=== PATIENT | female | born 2000 | race Caucasian/White ===

== ENCOUNTER 2023-12-26 07:30 | Inpatient (IN) ==
--- NOTE | 2023-12-11 11:40 | Anesthesiology Consultation ---
Date of Service December 11, 2023 Assessment & Plan (1) Encounter for pre-operative examination: - spina bifida occulta history as below. Case discussed in detail with Dr. Woodard who advised patient should be acceptable candidate for neuraxial anesthesia given below imaging and examination by orthopedics. He advised nothing further is needed prior to , final determination to anesthesiologist evaluation at presentation. FYI sent to surgeon's office. - orthopedics office visit 01/02/2021 [facility]: "...complaints/concerns of intermittent lower back pain with no radiculopathy symptoms that has been ongoing for the past two years...Onset, progress and duration: since 2019...Spine surgery - Surgeon and date: no...neurologically intact. Has no radiculopathy symptoms or symptoms of neurogenic claudication...Activity modification. Physical therapy exercises for gentle ROM, muscle relaxation and strengthening. Brace for spinal stabilization and pain relief. Pain medications as per the primary care. Adverse effects and appropriate precautions were discu ssed...patient elected to f/u prn..."' - PCP office visit 11/25/2020 [facility]: "...Back in 2019 MRI of the lumbar spine was ordered secondary to history of spina bifida occulta and chronic lumbosacral back pain. MRI was normal, but she continues with chronic lumbosacral back pain ...has done physical therapy. She would like to find low up with a surgeon for possible injections...SPINE SURGERY REFERRAL OP..." - lumbar spine x-ray 01/02/2021 There are 5 lumbar vertebral bodies. Vertebral body heights are maintained. There is no fracture. There is normal lumbar lordosis, without significant change on flexion/extension views. Disc space heights are maintained. - lumbar spine MRI 07/20/2019 For the purposes of this report there are 5 lumbar type vertebral bodies and 12 rib bearing thoracic vertebral bodies. This was determined via test borer imaging. There is no evidence of fracture or subluxation. No suspicious bone marrow signal abnormalities are identified. The lumbar vertebral body alignment, heights, and signal intensities are within normal limits. The conus is of normal caliber and signal intensity and terminates at L1. The visualized cord is normal in morphology and signal. No intraspinal or paraspinal mass is identified. There is no evidence of tethered cord. There is no significant disc bulge, and no high-grade spinal or foraminal stenosis identified. No facet arthropathy. No abnormal enhancement is appreciated on post-contrast sequences. Paraspinal soft tissues are within normal limits. The partially imaged abdomen and pelvis are unremarkable. IMPRESSION 1. Normal lumbar spine. - Per boiler testing technician on 12/11/23: No known infectious disease contacts, current infectious disease symptoms in past 10 days or COVID positive test result in the past 30 days. Chart Review Chart Review: order entry initiated History Surgery Operation Date: 12/27/23 10:25 Proposed Procedures p Section (Delivery of Baby Through Abdominal Incision) - Mary Martinez, Height/Weight Height: 5 ft 8 in Weight: 85.275 kg Allergies Allergy/AdvReac Type Severity Reaction Status Date / Time No Known Allergies Allergy Verified 12/11/23 10:35 Medications Home Medications Medication Instructions Recorded Confirmed Last Taken enoxaparin 80 mg/0.8 mL 80 mg subcut QAM 12/11/23 12/11/23 Unknown subcutaneous syringe folic acid 1 mg tablet 5 mg PO QAM 12/11/23 12/11/23 Unknown vsndgjkd-[id number]-Rb-FA 1 mg 1 tab PO QAM 12/11/23 12/11/23 Unknown tablet Past Medical History Medical History (Updated 12/11/23 @ 11:38 by Leta Jiménez PA-C) Anemia affecting was to have IV iron infusion but had syncopal event due to IV, now takes po iron History of chicken pox History of COVID-19 x 6-8, not hospitalized MTHFR gene mutation lovenox prophylactic, will start heparin bid 12/13/23 Spina bifida occulta Past Family History Family History Father MTHFR mutation Grandmother (Paternal) MTHFR mutation Aunt MTHFR mutation Denies family history of Ovarian cancer Breast cancer Colorectal cancer Past Surgical History Surgical History S/P nasal surgery S/P wisdom tooth extraction Social History Smoking Status: Former smoker Do You Dip or Chew Tobacco: No Smoking End Date: quit vaping 2022 Hx Substance Use: No substance use type: does not use
--- NOTE | 2023-12-26 13:36 | History & Physical Report ---
Date of Service December 26, 2023 Assessment & Plan (1) Breech presentation: Plan: Plan for primary section d/t breech presentation. Reviewed consent in office. History of Present Illness Chief Complaint: breech presentation Primary Care Provider: LISANDRO PCP 23yo with breech presentation. EDC 01/02/24 LGSIL pap 05/2023 Repeat pap/HPV in [address] Martinez BREECH PRESENTATION C/S SCHEDULED FOR 12/26/[address] CALLE C/S RESCHEDULED TO 12/27/[address] MARTINEZ FMHX Blood Clots *HEME Consult (06/13/23 @ [facility] [place]) -Tested negative for factor 5 and positive for MTHFR mutation *Started on 80mg of Lovenox daily for prophylaxis and states to continue rest of *Need to see if will transition to heparin at 36wks---[facility] and states they will switch her to heparin at 36wks GBS Positive *Treat in Labor Allergies Allergy/AdvReac Type Severity Reaction Status Date / Time No Known Allergies Allergy Verified 12/26/23 11:08 Home Medications Medication Instructions Recorded Confirmed Type folic acid 1 mg tablet 5 mg PO QAM 12/11/23 12/26/23 History trcelsys-iki-Lt-FA 1 mg 1 tab PO QAM 12/11/23 12/26/23 History tablet heparin lock flush (porcine) subcut 12/24/23 12/26/23 History [heparin (porcine)] Patient History Medical History (Updated 12/26/23 @ 13:37 by Mary Martinez, DO) Spina bifida occulta Anemia affecting was to have IV iron infusion but had syncopal event due to IV, now takes po iron History of COVID-19 x 6-8, not hospitalized MTHFR gene mutation lovenox prophylactic, will start heparin bid 12/13/23 History of chicken pox Surgical History S/P wisdom tooth extraction S/P nasal surgery Family History Father MTHFR mutation Grandmother (Paternal) MTHFR mutation Aunt MTHFR mutation Denies family history of Ovarian cancer Breast cancer Colorectal cancer Social History (Updated 05/20/23 @ 08:56 by Francheska Wren) Smoking Status: Former smoker Tobacco Type: E-cigarettes / Vaping Second Hand Exposure: No; Do You Dip or Chew Tobacco: No; Hx Substance Use: No Preferred Language: Dutch Communication Ability: Effective Ui Developer Required: No Beliefs That Will Affect Care: None marital status: Single marital status details: rossana Tran [place](23) [phone] Current Living Situation: Significant Other Current Living Situation Comment: lives alone, 2 dogs current occupational status: employed current occupation: [employer] [place] Feels Safe at Home: Yes Assistive Devices: Glasses Review of Systems All systems reviewed & are unremarkable except as noted in HPI & below Physical Exam Constitutional: WD/WN, vitals as above Respiratory: normal respiratory effort, lungs clear to auscultation no respiratory distress Cardiovascular: Rate/Rhythm: regular rate and regular rhythm Gastrointestinal (Abdomen): Inspection/Auscultation: abdomen normal to inspection Percussion/Palpation: abdomen soft; abdomen nontender Gravid. No s/s chorio or abruption. Skin: no rashes, warm and dry Psychiatric: A+Ox3, euthymic affect Coding Level of Care Code None Diagnoses Breech presentation O32.1XX0
[2023-12-27] MEDS: LACTATED RINGER'S 1,000 ML IV SCH (07:20)
--- NOTE | 2023-12-27 07:34 | History & Physical Bridge Note ---
Date of Service December 27, 2023 History & Physical Bridge Note I have examined the patient, reviewed the History & Physical and in the interval since the performance of the History & Physical I have noted the following changes of clinical significance: no changes noted
[2023-12-27] MEDS ORDERED: MoRPHine SULFATE PF 1 MG/ML 10 ML AMP/VIAL ONE (07:44)
[2023-12-27] MEDS ORDERED: fentaNYL citrate PF 100 MCG/2 ML VIAL ONE (07:44)
[2023-12-27] MEDS ORDERED: PHENYLEPHRINE HCL 25 MG/250 ML NSS IV ONE (07:45)
[2023-12-27] MEDS ORDERED: OXYTOCIN 10 UNITS/ML VIAL ONE ×3 (07:45)
[2023-12-27] MEDS ORDERED: Nursing to Pharmacy Communication SCH (07:45)
[2023-12-27 09:01] LABS: Basophils # (auto) 0.03 K/uL (0.00-0.20); Basophils % (auto) 0.4 %; Eosinophils # (auto) 0.07 K/uL (0.00-0.50); Hematocrit (blood only) 32.4 % (37.0-47.0); Immature Granulocytes # (auto) 0.05 K/uL (0.01-0.20); Immature Granulocytes % (auto) 0.7 %; Lymphocytes # (auto) 1.85 K/uL (1.20-3.40); Lymphocytes % (auto) 25.6 %; Mean Corpuscular Hemoglobin 30.1 pg (25.0-34.0); Mean Corpuscular Volume 88.8 fL (80.0-100.0); Mean Platelet Volume 10.8 fL (9.4-12.4); Monocytes % (auto) 8.3 %; Neutrophils # (auto) 4.63 K/uL (1.40-6.50); Platelet Count 235 K/uL (130-400); RDW Coefficient of Variation 12.9 % (11.5-14.5); RDW Standard Deviation 41.5 fL (36.4-46.3); Red Blood Count 3.65 M/uL (4.20-5.40); White Blood Count 7.23 K/ul (4.8-10.8)
[2023-12-27] MEDS: ceFAZolin 2000MG 2,000 MG/15 ML SYR IV SCH (10:47)
[2023-12-27] MEDS: CITRIC ACID/SODIUM CITRATE 15 ML UDC PO SCH (10:47)
[2023-12-27] MEDS ORDERED: DROPERIDOL 5 MG/2 ML VIAL IV PRN (11:10)
[2023-12-27] MEDS ORDERED: MoRPHine SULFATE PF 1 MG/ML 10 ML AMP/VIAL INT SPINAL ONE (11:10)
[2023-12-27] MEDS ORDERED: NALOXONE HCL 1 MG in SODIUM CHLORIDE 0.9% 1,000 ML IV PRN (11:10)
[2023-12-27] MEDS ORDERED: ONDANSETRON INJ 2 MG/ML 2 ML VIAL IV PRN (11:10)
[2023-12-27] MEDS ORDERED: diphenhydrAMINE 50 MG/ML VIAL IV PRN ×2 (11:10)
[2023-12-27] MEDS ORDERED: NALBUPHINE HCL 5 MG in SYRINGE 0 ML IV PRN (11:10)
[2023-12-27] MEDS ORDERED: NALOXONE HCL 0.4 MG/1 ML VIAL/CARP IV PRN (11:10)
[2023-12-27] MEDS ORDERED: ePHEDrine sulfate 50 MG/ML AMP IV PRN (11:10)
[2023-12-27] MEDS ORDERED: LACTATED RINGER'S 500 ML IV PRN (11:10)
[2023-12-27] MEDS ORDERED: NALOXONE HCL 0.08 MG in SYRINGE 1.8 ML IV PRN (11:10)
[2023-12-27] MEDS ORDERED: NO NARCOTICS OR SEDATIVES SCH (11:15)
[2023-12-27] MEDS ORDERED: DC INTRASPINAL MORPHINE SCH (11:15)
[2023-12-27] MEDS ORDERED: SODIUM CHLORIDE 0.9% 1,000 ML IV SCH (11:15)
[2023-12-27] MEDS ORDERED: ONDANSETRON INJ 2 MG/ML 2 ML VIAL ONE (11:27)
[2023-12-27 11:46] LABS: Base Excess Cord Venous Blood -8.3 mEq/L (-7.7-1.9); Cord Venous Blood HCO3 22 mmol/L (18.4-26.8); Cord Venous Blood PCO2 68 mmHg (30.4-57.2); Cord Venous Blood PO2 < 20 mmHg (14.1-43.3); Cord Venous Blood pH 7.12 (7.20-7.44); O2 Saturation Cord Venous Bld < 60.0 % (<68)
[2023-12-27 11:48] LABS: Base Excess Cord Arterial Bld -10.5 mEq/L (-9-1.8); CO2 Cord Arterial Blood 77 mmHg (39.1-73.5); HCO3 Cord Arterial Blood 21 mmol/L (19.7-28.5); Oxygen Sat Cord Arterial Blood < 60.0 % (<60); PO2 Cord Arterial Blood < 20 mmHg (4.1-31.7); pH Cord Arterial Blood 7.05 (7.1-7.38)
[2023-12-27] MEDS ORDERED: HYDROmorphone INJ 0.5 MG/0.5 ML SYR IV PRN (12:06)
--- NOTE | 2023-12-27 12:11 | Operative Report ---
PG Post Operative Report Pre & Post Diagnosis Operation Date: 12/27/23 09:10 Pre-Op Diagnosis: 1. Breech presentation 2. Term Post-Op Diagnosis: Same I identified the patient and participated in the time-out.: Yes Procedure Operation Date: 12/27/23 09:10 Actual Procedures Primary Low Transverse Section in LD; Primary Lower Uterine Transverse Section for the of a live girl at 1122(Bilateral) - Mary Martinez DO Surgeon Mary Martinez DO Oil Inspector Pauly Ames RN, Liz Davison RN Estimated Blood Loss 264 (QBL ) Findings Consistent with Post-Op Diagnosis Viable female , Apgars 8/9. Weight pending, please see nursery records. Specimens placenta, cord blood, cord gas Drains velez clear yellow Anesthesia Type Spinal Complications none Disposition Accompanied Patient To Recovery: Yes Disposition: L&D Indications 23yo @ 39 1/, breech presentation. Description of Procedure The patient was seen in her labor and delivery room, risks benefits and alternatives to surgery were reviewed. Informed consent obtained. Questions were answered. She was taken to the operating room, spinal anesthesia was administered. She was then prepared and draped in the usual sterile fashion in the supine position with a leftward tilt. Timeout was confirmed. A Pfannenstiel skin incision was made with a scalpel, and carried through to the underlying layer of fascia. Fascia was nicked at midline, and this incision was extended bilaterally. The superior aspect of the fascial incision was grasped with Chalo clamps x2, elevated off the underlying rectus abdominis muscles, and dissected sharply and bluntly. In similar fashion, the inferior aspect of the fascial incision was dissected. The rectus abdominis muscles were , and the peritoneum was entered bluntly digitally. This was extended bilaterally. The bladder flap was taken down carefully using Metzenbaum scissors. Using a new scalpel, a low transverse uterine incision was created. Clear amniotic fluid noted. The infant was delivered from a breech presentation. One foot delivered, followed by medial sweep of other leg for delivery. Body delivered, followed by medial sweeps of arms. Head delivered easily. The cord was doubly clamped and cut, and the was handed off to the waiting wire brush maker. A segment was retained for cord gases. Cord blood was obtained. The placenta was delivered spontaneously intact. The uterus was exteriorized, and cleared of all clots and debris. The hysterotomy incision was reapproximated using 0 Vicryl in a running locked stitch. A second layer of the same suture was used to imbricate the incision. Posterior uterus was evaluated and normal. The uterus was returned to the abdomen, and gutters were cleared of clots and debris. Excellent hemostasis was observed. There was previously a small amount of bleeding in left abdominal muscle wall - rectus abdominus. This was hemostatic after the delivery of baby, however Levy powder was applied to this area as a preventative. The fascial incision was reapproximated using 0 Vicryl in a running stitch. The subcutaneous tissue was irrigated, and reapproximated using 2-0 plain gut in a running stitch. The skin was reapproximated using 4-0 Vicryl in a running subcuticular stitch. Steri-Strips and a bandage were applied. The patient tolerated the procedure well, and will be taken to the recovery area in stable and good condition. I attest to the content of the Intraoperative Record and any orders documented therein. Any exceptions are noted below. OB Procedure Charges 28456
[2023-12-27] MEDS: GELATIN SPONGE SZ 100 ONE ×2 (12:38)
[2023-12-27] MEDS ORDERED: ARISTA ABSORBABLE HEMOSTAT 3GM TOP ONE (12:39)
--- NOTE | 2023-12-27 12:40 | Anesthesiology Progress Note ---
Date of Service December 27, 2023 Anesthesia Post Procedure Vital Signs Vital Signs: Temp Pulse Pulse Resp BP Pulse Ox O2 Del Method 12/27/23 12:38 56 L 115/53 L 12/27/23 12:35 17 12/27/23 12:34 60 99 12/27/23 12:29 62 100 12/27/23 12:27 16 12/27/23 12:24 65 99 12/27/23 12:22 68 92 12/27/23 12:20 71 118/70 12/27/23 12:19 71 100 12/27/23 12:15 36.6 C 64 16 Room Air 12/27/23 12:14 65 100 12/27/23 12:09 86 L 12/27/23 12:09 74 12/27/23 12:09 75 88 L 12/27/23 12:07 73 98/51 L 12/27/23 12:04 74 100 12/27/23 07:19 75 117/70 12/27/23 07:19 37.1 C 75 16 117/70 Pain Intensity Lower Abdomen: Pain Intensity: 0 Transfer of Care Handoff Completed per policy Notes Mental Status: alert / awake / arousable Patient Amnestic to Procedure: Yes Nausea / Vomiting: adequately controlled Pain: adequately controlled Airway Patency, RR, SpO2: stable & adequate BP & HR: stable & adequate Hydration State: stable & adequate Neuraxial Anesthesia: was administered and sensory block is resolving Anesthetic Complications: no major complications apparent and Pt Satisfied with anesthetic care
[2023-12-27] MEDS ORDERED: SENNA 8.6 MG TAB PO PRN (13:47)
[2023-12-27] MEDS ORDERED: MAGNESIUM HYDROXIDE SUSP 30 ML UDC PO PRN (13:47)
[2023-12-27] MEDS ORDERED: BENZOCAINE 20% SPRY 85 APPLN/85 GM CAN EXT PRN (13:47)
[2023-12-27] MEDS ORDERED: diphenhydrAMINE Capsule 25 MG CAP PO PRN (13:47)
[2023-12-27] MEDS ORDERED: LACTATED RINGER'S 1,000 ML IV SCH (13:47)
[2023-12-27] MEDS ORDERED: DIPHTHER/TETAN/PERTUS Vaccine (Tdap, Adol/Adult) 0.5mL IM ONE (13:47)
[2023-12-27] MEDS ORDERED: HYDROCORTISONE ACETATE 25 MG SUPP PR PRN (13:47)
[2023-12-27] MEDS: OXYTOCIN 20 UNITS/LR 1,002 ML IV SCH (13:53)
[2023-12-27] MEDS: KETOROLAC 30 MG/ML VIAL IV PRN (14:17)
[2023-12-27] MEDS: DOCUSATE SODIUM 100 MG CAP PO SCH (21:40)
[2023-12-27] MEDS: SIMETHICONE 80 MG CHEW PO SCH (21:40)
[2023-12-28] MEDS ORDERED: diphenhydrAMINE Capsule 25 MG CAP PO PRN (05:10)
[2023-12-28] MEDS ORDERED: oxyCODONE/ACETAMINOPHEN 5mg/325mg TAB PO PRN (05:10)
[2023-12-28] MEDS ORDERED: PROMETHAZINE HCL 25 MG in SODIUM CHLORIDE 0.9% 50 ML IV PRN (05:10)
[2023-12-28] MEDS ORDERED: ONDANSETRON INJ 2 MG/ML 2 ML VIAL IV PRN (05:10)
[2023-12-28] MEDS ORDERED: diphenhydrAMINE 50 MG/ML VIAL IV PRN (05:10)
[2023-12-28] MEDS ORDERED: KETOROLAC 30 MG/ML VIAL IV PRN (05:10)
--- NOTE | 2023-12-28 06:23 | Obstetrical Progress Note ---
Date of Service <Mei Chong Radha - Last Filed: 12/28/23 06:24> December 28, 2023 Assessment & Plan <Mei Arlette Garcia DO - Last Filed: 12/28/23 06:24> (1) care following delivery: (2) Group B streptococcal infection during : (3) Breech presentation: Plan Feels well today. Eating well, voiding well. Pain well controlled with IV pain meds overnight, to transition to oral pain meds today. Routine care; OOB, ambulation, diet progression as tolerated. Anticipate discharge 48-72 hrs after c section delivery, tomorrow or Saturday but likely Saturday for first time mom who is /pumping. After discharge will have 6 week follow-up with Dr. Matrinez. <Mary Martinez, - Last Filed: 12/28/23 07:32> (1) care following delivery: (2) Group B streptococcal infection during : (3) Breech presentation: Subjective <Mei Garcia DO - Last Filed: 12/28/23 06:24> Pt is a 23 y/o female who is POD#1 following delivery for breech on 12/26. Today, pt states she is feeling well. She states the catheter was removed and she was just able to void on her own. She states she is overall feeling well, has ambulated some since the delivery and is tolerating oral intake without issue. She is going to try to learn how to pump and breastfeed today. Cramps are mild and lochia is minimal. No questions or complaints at this point in time. Constitutional: no fever, no chills or no sweats Respiratory: no dyspnea Cardiovascular: no chest pain or no palpitations Breast: no breast pain Genitourinary (female): no dysuria Neurologic: no headache(s) no changes in vision, no headaches Physical Exam <Mei Garcia DO - Last Filed: 12/28/23 06:24> General: Alert, oriented. No acute distress. Cardiac: Regular rate and rhythm, no murmurs, rubs, or gallops. Respiratory: Clear to auscultation bilaterally, no wheezes/rales/rhonchi. No increased work of breathing. Symmetrical chest rise. No respiratory distress. Abdomen: Soft, nontender, nondistended. Bowel sounds present. Uterus: Uterine fundus firm, palpable below the umbilicus. Surgical scar clean and healing well, steristrips in place. Lower extremities: No deep calf pain. Results & Data <Mei Garcia DO - Last Filed: 12/28/23 06:24> Vital Signs (Past 12 Hours) Vital Signs Temp Pulse Resp BP Pulse Ox O2 Del Method 12/28/23 05:15 36.8 C 76 20 108/70 99 Room Air 12/28/23 05:00 20 99 12/28/23 04:15 18 98 12/28/23 03:12 18 96 12/28/23 02:15 16 97 12/28/23 01:15 18 98 12/28/23 00:00 16 99 12/28/23 00:00 37.1 C 85 16 105/62 99 Room Air 12/27/23 23:00 18 97 12/27/23 22:11 18 97 12/27/23 21:15 20 98 12/27/23 20:30 18 96 12/27/23 20:30 36.9 C 82 18 113/70 96 Room Air 12/27/23 19:15 18 98 Supervising Physician <Mary Martinez DO - Last Filed: 12/28/23 07:32> Co-Signing Physician Notes Resident Physician Supervision Note: I was present with Dr. Garcia during the history and exam. I discussed the case with the resident and agree with the findings and plan as documented in the note. Any exceptions or clarifications are listed here: POD#1 doing well, no concerns. Routine postop care. Plan to restart her lovenox dosing at 11a (24h after CS), Rx sent to [facility]. She is aware of rec to take for the next 6w. Documented By: Mary Martinez DO Resident Activity Tracking <DO Arie Alcala Last Filed: 12/28/23 06:24> Resident Involvement: Resident Care Provided Care Provided: OB Delivery
[2023-12-28 07:24] LABS: Basophils # (auto) 0.04 K/uL (0.00-0.20); Basophils % (auto) 0.4 %; Eosinophils # (auto) 0.05 K/uL (0.00-0.50); Eosinophils % (auto) 0.5 %; Hematocrit (blood only) 29.6 % (37.0-47.0); Hemoglobin 9.9 g/dl (12.0-16.0); Immature Granulocytes # (auto) 0.04 K/uL (0.01-0.20); Immature Granulocytes % (auto) 0.4 %; Lymphocytes # (auto) 1.76 K/uL (1.20-3.40); Lymphocytes % (auto) 16.8 %; Mean Corpuscular Hgb Conc 33.4 g/dL (32.0-36.0); Mean Corpuscular Volume 89.7 fL (80.0-100.0); Mean Platelet Volume 10.7 fL (9.4-12.4); Monocytes # (auto) 0.77 K/uL (0.11-0.59); Monocytes % (auto) 7.3 %; Neutrophils # (auto) 7.83 K/uL (1.40-6.50); Neutrophils % (auto) 74.6 %; Platelet Count 177 K/uL (130-400); RDW Coefficient of Variation 13.1 % (11.5-14.5); RDW Standard Deviation 42.3 fL (36.4-46.3); White Blood Count 10.49 K/ul (4.8-10.8)
[2023-12-28 08:02] LABS: Creatinine Clr Calc Pharmacy 139.5 ml/min; Est GFR (African American) 135.9 ml/min; Est GFR (Non-African American) 117.2 ml/min
[2023-12-28] MEDS: FERROUS SULFATE 325 MG TAB PO SCH (08:38)
[2023-12-28] MEDS: PRENATAL VITAMIN 1 TAB PO SCH (08:38)
[2023-12-28] MEDS ORDERED: ENOXAPARIN 80 MG/0.8 ML SYR SQ SCH (09:00)
[2023-12-28] MEDS: IBUPROFEN 600 MG TAB PO PRN (11:26)
[2023-12-28] MEDS: ENOXAPARIN 80 MG/0.8 ML SYR SQ SCH (11:26)
[2023-12-28] MEDS: bisacodyL 5 MG TABEC PO SCH (20:25)
[2023-12-29 06:30] LABS: Hematocrit (blood only) 30.6 % (37.0-47.0); Hemoglobin 10.3 g/dl (12.0-16.0)
--- NOTE | 2023-12-29 07:37 | Obstetrical Progress Note ---
Date of Service December 29, 2023 Assessment & Plan (1) care following delivery: Postoperative from section patient meets discharge criteria as she is ambulating well tolerating an oral diet has minimal bleeding and no extremity pain. Discharge instructions were reviewed and prescriptions were sent to her pharmacy of choice patient advised to call with any concerns and follow-up in the office discussed incision cdi Subjective Ambulation: ambulating normally Voiding: no voiding problems Passing Gas:: Yes Diet Tolerance:: regular diet Lochia:: Small Physical Exam Constitutional WD/WN, vitals as above well developed and well nourished Respiratory normal respiratory effort, lungs clear to auscultation normal respiratory effort Cardiovascular RRR, no murmur, no edema Gastrointestinal (Abdomen) normal bowel sounds, soft, nontender, no hepatosplenomegaly Results & Data Vital Signs (Past 12 Hours) Vital Signs Temp Pulse Resp BP Pulse Ox O2 Del Method 12/29/23 07:19 98.4 F 84 16 115/73 12/29/23 00:00 97.7 F 83 16 104/60 100 Room Air 12/28/23 21:20 Room Air 12/28/23 21:20 98.4 F 88 18 124/74 100 Room Air
[2023-12-29] MEDS ORDERED: bisacodyL 10 MG SUPP PR PRN (12:04)
--- NOTE | 2023-12-31 17:34 | Discharge Summary ---
Date of Service December 31, 2023 Admission HPI Per Admitting Provider 23yo with breech presentation. EDC 01/02/24 LGSIL pap 05/2023 Repeat pap/HPV in [address] Martinez BREECH PRESENTATION C/S SCHEDULED FOR 12/26/[address] CALLE C/S RESCHEDULED TO 12/27/[address] MARTINEZ FMHX Blood Clots *HEME Consult (06/13/23 @ [facility] [place]) -Tested negative for factor 5 and positive for MTHFR mutation *Started on 80mg of Lovenox daily for prophylaxis and states to continue rest of *Need to see if will transition to heparin at 36wks---[facility] and states they will switch her to heparin at 36wks GBS Positive *Treat in Labor Admission Exam (Per Admitting) Constitutional WD/WN, vitals as above Respiratory normal respiratory effort, lungs clear to auscultation no respiratory distress Cardiovascular Rate/Rhythm: regular rate and regular rhythm Gastrointestinal (Abdomen) Inspection/Auscultation: abdomen normal to inspection Percussion/Palpation: abdomen soft; abdomen nontender Skin no rashes, warm and dry Psychiatric A+Ox3, euthymic affect Discharge Data Consultations 12/27/23 07:38 Consult Anesthesiology Stat Procedures Performed Operation Date: 12/27/23 09:10 Actual Procedures p Section in LD; Primary Lower Uterine Transverse Section for the of a live girl infant at 1122(Bilateral) - Mary Martinez DO Hospital Course (1) care following delivery: Postoperative from section patient meets discharge criteria as she is ambulating well tolerating an oral diet has minimal bleeding and no extremity pain. Discharge instructions were reviewed and prescriptions were sent to her pharmacy of choice patient advised to call with any concerns and follow-up in the office discussed incision cdi Supervising Physician Co-Signing Physician Notes Resident Physician Supervision Note: I was present with Dr. Garcia during the history and exam. I discussed the case with the resident and agree with the findings and plan as documented in the note. Any exceptions or clarifications are listed here: POD#1 doing well, no concerns. Routine postop care. Plan to restart her lovenox dosing at 11a (24h after CS), Rx sent to [facility]. She is aware of rec to take for the next 6w. Documented By: Mary Martinez DO Coding Level of Care Code None Diagnoses care following delivery Z39.2
== END 2023-12-29 12:22 | disposition home or self-care (01) | DRG 787 ==
LOC: EDSTATUS 07:30 → 4S1 12-27 07:06 → 4E2 12-27 14:39